=== PATIENT | male | born 1995 | race Hispanic/Latino ===

== ENCOUNTER 2018-04-20 01:37 | Emergency (ER) | payer OTHER ==
[2018-04-20] MEDS ORDERED: Ibuprofen 800 MG TAB ONE (02:32)
== END 2018-04-20 02:55 | disposition home or self-care (01) ==
LOC: ERS 01:37
DX: J02.9 Acute pharyngitis, unspecified (principal); J45.909 Unspecified asthma, uncomplicated; F41.9 Anxiety disorder, unspecified; F32.9 Major depressive disorder, single episode, unspecified; Z79.51 Long term (current) use of inhaled steroids
CPT/HCPCS: 87081; 87430; 99283